=== PATIENT | male | born 1955 | race Caucasian/White ===

== ENCOUNTER 2018-12-09 17:14 | Observation (INO) ==
[2018-12-09] MEDS ORDERED: Isovue-370 500 ML BOTTLE IVP ONE (17:25)
--- NOTE | 2018-12-09 17:25 | Emergency Department Note ---
Disposition Clinical Impression: Facial droop Disposition: Admitted As Inpatient Condition: Fair Referrals: NONE,PCP [Primary Care Provider] - Forms: ED Satisfaction Letter Time of Disposition: 19:12 Neuro HPI - General Chief Complaint: ED Neuro Symptoms/Deficit Stated Complaint: POSSIBLE STROKE Time Seen by Provider: 12/09/18 17:16 Source: patient Nursing Notes Reviewed: Yes Vital Signs Reviewed: Yes - History of Present Illness HPI Narrative: 63-year-old male who presents emergency Department with stroke-like symptoms. Per his last known well was 11:30, approximately 6 hours prior to arrival. At 11:30 he was his normal self and left. She called him and he was sl urring his speech and seemed confused. When she got home he did not know the president and did not know the year. She noted right-sided facial droop and brought him into the emergency department. He does not take any anticoagulants other than aspirin. - Related Data Home Medications: Home Medications Medication Instructions Recorded Confirmed Aspirin [Lo-Dose Aspirin EC] 81 mg PO DAILY 12/09/18 12/09/18 Losartan/Hydrochlorothiazide 1 each PO DAILY 12/09/18 12/09/18 [Losartan-Hctz 100-25 mg Tab] Potassium Chloride 20 meq PO TID 12/09/18 12/09/18 Allergies/Adverse Reactions: Allergies Allergy/AdvReac Type Severity Reaction Status Date / Time No Known Allergies Allergy Verified 12/09/18 17:42 Review of Systems: ROS per history of present illness, all other systems reviewed and negative or normal. All systems ED: reviewed and negative except as stated. Review of Systems: As Per HPI Past Medical History - Past Medical History Medical history: Reports: hypertension - Social History Smoking Status: Never smoker Smokeless Tobacco Status: No Alcohol use: Reports: none Drug use: Reports: none Physical Exam General: Conversant. No apparent distress. Follow commands. Appears stated age. Neck: No JVD. Trachea midline. Neck supple. Eyes: PERRL. No scleral icterus. HENT: Normocephalic and atraumatic. Moist mucus membranes. Cardiovascular: Regular rate and rhythm. Normal S1 and S2. No murmurs appreciated. Normal capillary refill. Extremities well perfused with 2+ distal pulses bilaterally. No edema. Pulmonary: Normal and equal breath sounds bilaterally, anteriorly and posteriorly. No wheezes, rales, or rhonchi. Not in respiratory distress. Speaks in full sentences. Abdomen: Soft, nondistended, and tontender. No bruits or masses. No guarding. Neuro: Alert and oriented to person, place. CN II-XII tested and grossly intact. No hemineglect. Speech is fluid and without slurring. Right-sided facial droop. Follows commands. Able to identify objects. Sensory: Sensation intact to light touch in all extremities. Motor: Normal tone and bulk. No pronator drift. 5/5 strength in LUE 5/5 strength in RUE 5/5 strength in LLE 5/5 strength in RLE Reflexes: Brachioradialis, biceps, and patellar reflexes 2+ and symmetric bilaterally. Babinski with downgoing toes bilaterally. Skin: No rashes noted on visualized skin. Musculoskeletal: No bony abnormalities visualized. Moves all extremities. Psych: Normal mood. Pleasant. Makes appropriate eye contact. - General General appearance: alert Course - Reevaluation(s) Reevaluation #1: Per [facility], head and neck CTA negative for acute occlusive disease. Time: 18:48 - Consultations Consultation #1: Per [facility], noncontrast head Ct negative for acute bleed. CTAs pending Time: 17:36 Consultation #2: Spoke with [facility] Time: 17:46 Consultation #3: [facility] neurologist, Dr. Levin evaluated the patient and recommends admission for possible transient global amnesia. Time: 17:57 Vital Signs Temperature 98.6 F 12/09/18 17:17 Pulse Rate 71 12/09/18 17:17 Respiratory Rate 18 12/09/18 17:17 Blood Pressure 158/93 12/09/18 17:17 O2 Sat by Pulse Oximetry 97 12/09/18 17:17 Temperature 98.6 F 12/09/18 17:17 Pulse Rate 66 12/09/18 18:39 Respiratory Rate 18 12/09/18 18:39 Blood Pressure 146/81 12/09/18 18:39 O2 Sat by Pulse Oximetry 100 12/09/18 18:39 Oxygen Delivery Oxygen Delivery Room Air Neuro Symptoms/Deficit - MDM Narrative Medical decision making narrative: 63-year-old male who presents the emergency room with complaints of right-sided facial droop and altered mental status. Last known well was approximately 6 hours prior to arrival. He does have right-sided facial droop but otherwise he is alert and oriented without neurologic deficits. Given the patient's less than 24 hours of symptoms he did initiate stroke alert to determine whether he is candidate for endovascular repair. Accu-Chek greater than 100. CT head was performed which shows no evidence of acute hemorrhagic bleed. Given the timeline did also sent for CT angio head and neck. [facility] neurologist evaluated the patient and deemed him not a candidate for TPA given the timeline and lack of significant deficits. They recommend awaiting CTA and admitting for possible transient global amnesia. The patient has no evidence of occlusive disease on CTA. The patient and his are agreeable to plan for admission. Otherwise his laboratory evaluation is stable. No significant anemia, leukocytosis, electrolyte abnormality. Troponin 1 less than 0.03. Discussed case with on- call hospitalist Dr. Jameson who agrees with plan for admission and accepts the patient to the inpatient service. Patient agrees with and understands course of treatment plan including plan for admission. All questions answered. - Medical Records Medical records reviewed: Yes I reviewed the patient's medical records. - Lab Data Lab results reviewed: Yes I reviewed the patient's lab results. Result diagrams: 12/09/18 17:44 12/09/18 17:44 Lab Results 12/09/18 12/09/18 12/09/18 Range/Units 17:44 17:44 17:44 WBC 7.1 (4.3-11.1) K/mcL RBC 4.38 (4.19-5.50) M/mcL Hgb 13.2 (12.9-16.9) g/dL Hct 39.0 (37.5-50.1) % MCV 89.0 (83.0-100.0) fL MCH 30.1 (28.0-33.3) pg MCHC 33.8 (31.6-35.5) g/dL RDW 13.4 (11.5-14.5) % Plt Count 223 (140-400) K/mcL MPV 10.1 (9.4-12.4) fL PT 11.9 (9.4-12.1) Seconds INR 1.0 APTT 29.9 (26.0-36.0) Seconds Sodium 138 (136-145) mEq/L Potassium 3.7 (3.5-5.1) mEq/L Chloride 104 (98-107) mEq/L Carbon Dioxide 27 (23-29) mEq/L BUN 20 (8-23) mg/dL Creatinine 1.16 (0.70-1.30) mg/dL Est GFR ( Amer) > 60 (> 60) Est GFR (Non-Af Amer) > 60 (> 60) BUN/Creatinine Ratio 17 (6-26) Glucose 114 H (70-105) mg/dL Calculated Osmolality 289 (280-300) Calcium 8.5 L (8.6-10.3) mg/dL Troponin I < 0.03 (< 0.04) ng/mL - Radiology Data Radiology results reviewed: Yes I reviewed the patient's radiology results. Head CT 12/09/18 17:23 IMPRESSION: No acute intracranial abnormality. Findings were discussed with Samina Dale at 5:36 pm on 12/09/2018. D/ / Mehul Leiva MD / Mehul Leiva MD Interpreting Provider: Mehul Leiva MD Head CTA 12/09/18 17:25 IMPRESSION: 1. No intracranial proximal large artery high-grade stenosis or occlusion. Focal 50% stenosis of the right posterior cerebral artery proximal P2 segment. 2. No cervical ICA stenosis per NASCET criteria. 3. Patent bilateral vertebral arteries. Critical results were called by Dr. Barrie Gibson to Samina Dale on 12/09/2018 at 18:48. D/ / Barrie Gibson / Barrie Gibson Interpreting Provider: Barrie Gibson Neck CTA 12/09/18 17:25 IMPRESSION: 1. No intracranial proximal large artery high-grade stenosis or occlusion. Focal 50% stenosis of the right posterior cerebral artery proximal P2 segment. 2. No cervical ICA stenosis per NASCET criteria. 3. Patent bilateral vertebral arteries. Critical results were called by Dr. Barrie Gibson to Samina Dale on 12/09/2018 at 18:48. D/ / Barrie Gibson / Barrie Gibson Interpreting Provider: Barrie Sessions Checklist - Eligibilty for IV tPA 1. LKW equal to or less than 4.5 hours be before treatment: No 2. Clinical diagnosis of ischemic stroke causing deficit: No 3. Age 18 years or older: No - LKW: 3-4.5 hrs Add. Warnings/Precautions Patient/family understanding: The patient/family members have been counseled and understood the risk, benefit, and alternatives of treatment. Agustin - Agustin Situation: Demographics, MOA Background: Presenting Complaint, Relevant PMH, Meds, & Allergies Assessment: Vital Signs, Course and respsone to treatment, Exam Concerns, Patient/Family Expectation, Pertinant Lab Results Recommendation: Recommendation based on pending studies, treatments, or consults S.BMohan Report Given to: Gisell Velez Repor Time: 19:17
--- NOTE | 2018-12-09 17:32 | Emergency Department Note ---
Disposition Clinical Impression: Facial droop Disposition: Admitted As Inpatient Condition: Fair Forms: ED Satisfaction Letter Time of Disposition: 17:32 General Adult HPI - General Chief complaint: ED Neuro Symptoms/Deficit Stated complaint: POSSIBLE STROKE Time Seen by Provider: 12/09/18 17:16 Source: patient - History of Present Illness Pain Scale: 0 - Related Data Home Medications Medication Instructions Recorded Confirmed Aspirin [Lo-Dose Aspirin EC] 81 mg PO DAILY 12/09/18 12/09/18 Losartan/Hydrochlorothiazide 1 each PO DAILY 12/09/18 12/09/18 [Losartan-Hctz 100-25 mg Tab] Potassium Chloride 20 meq PO TID 12/09/18 12/09/18 Past Medical History - Past Medical History Medical history: Reports: hypertension - Social History Smoking Status: Never smoker Smokeless Tobacco Status: No Alcohol use: Reports: none Drug use: Reports: none Physical Exam - General General appearance: alert Course Vital Signs Temperature 98.6 F 12/09/18 17:17 Pulse Rate 71 12/09/18 17:17 Respiratory Rate 18 12/09/18 17:17 Blood Pressure 158/93 12/09/18 17:17 O2 Sat by Pulse Oximetry 97 12/09/18 17:17 Temperature 98.6 F 12/09/18 17:17 Pulse Rate 71 12/09/18 17:17 Respiratory Rate 18 12/09/18 17:17 Blood Pressure 158/93 12/09/18 17:17 O2 Sat by Pulse Oximetry 97 12/09/18 17:17 Oxygen Delivery Oxygen Delivery Room Air Attestation Statement - Attestation Attestation: I reviewed the residents documentation and agree with the residents assessment and plan of care. I have personally had face to face time with the patient. (Brief History, Brief Exam, and MDM) I personally supervised and was present for the garcia/critical portions of the following procedures completed by the resident: (add procedures performed here). 63 year old male presents to the eD with complaints of right sided facial droop and LKW was 1130 as his was the last to seen him and he otherwise does not have a histroy of strokes from the past. We have called STROKE ALERT. No other neuro defecits present and I believe he is otherwise outside the window for tpa, but we will defer to [facility] telestroke.
[2018-12-09 17:56] LABS: Hemoglobin 13.2 g/dL (12.9-16.9); Mean Corpuscular HGB Conc 33.8 g/dL (31.6-35.5); Mean Corpuscular Hemoglobin 30.1 pg (28.0-33.3); Mean Platelet Volume 10.1 fL (9.4-12.4); Platelet Count 223 K/mcL (140-400); Red Blood Count 4.38 M/mcL (4.19-5.50); Red Cell Distribution Width 13.4 % (11.5-14.5); White Blood Count 7.1 K/mcL (4.3-11.1)
[2018-12-09 18:06] LABS: Prothrombin Time 11.9 Seconds (9.4-12.1)
[2018-12-09 18:09] LABS: Activated Partial Thrombo Time 29.9 Seconds (26.0-36.0)
[2018-12-09 18:19] LABS: BUN/Creatinine Ratio 17 (6-26); Blood Urea Nitrogen 20 mg/dL (8-23); Calcium 8.5 mg/dL (8.6-10.3); Carbon Dioxide 27 mEq/L (23-29); Chloride 104 mEq/L (98-107); Glucose 114 mg/dL (70-105); Osmolality,Calculated 289 (280-300); Potassium 3.7 mEq/L (3.5-5.1); Sodium 138 mEq/L (136-145); eGFR For African Americans > 60 (> 60); eGFR For Non-African Americans > 60 (> 60)
[2018-12-09 18:21] LABS: Troponin I < 0.03 ng/mL (< 0.04)
[2018-12-09] MEDS ORDERED: Aspirin 81 MG TAB.CHEW PO STA (19:18)
--- NOTE | 2018-12-09 21:01 | Internal Med History&Physical ---
Date of Encounter: 12/09/18 Time of Encounter: 20:57 Internal Medicine - H&P: HPI Chief complaint: Strokelike symptoms History of present illness: Mr. Banuelos is a 63 year old male with a past medical history of hypertension and melanoma status post excision 2 who presented to the ED due to concerns for strokelike symptoms consisting of right-sided facial droop and altered mental status. Patient was in his usual state of health approximately 6 hours prior to arrival. Patient states that he was in his usual state of health today. Around 2 this afternoon he was in his garage working on his mower. His next memory was of being evaluated here in the ED. According to his daughter who was at bedside, patient lives at home with his who was away from the house but called to check up on him. Per report, when he answered he was reported to be very emotional, was confused and uncertain what was going on. When she arrived at 4 she found him sitting on the front porch without any recollection of how he got there or the events that led up to this point. Squad was called and patient was brought in for evaluation. Stroke alert was initiated shortly after arrival. On arrival patient was afebrile with a initial blood pressure 158/93. Laboratory workup was also unremarkable. Imaging workup was negative for any acute intracranial abnormalities. Additionally, CTA of the head and neck within subocclusive disease. After further evaluation by [facility] neurology, given patient's timeline and lack of significant deficits, patient was deemed not to be a candidate for TPA. In addition to concern for CVA/TIA transient global amnesia was also discussed as a possibility. Patient was given a loading dose of aspirin and admitted for further evaluation. Patient denies any recent illness, fever, chills, shortness of breath, chest pain, nausea, vomiting or d iarrhea. Denies palpitations. Patient is a never smoker and drinks alcohol on occasion. He reports that he has been having some issues with memory for the past year, specifically remembering names. His daughter does report that he forgot going to a [employer] last Tuesday. No reports of depression or stress. Family history significant for heart disease in his father and Parkinson disease in his mother. 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 Patient wishes to be full code. Past Med Surg Social Fam HX - Past Medical History Medical history: hypertension Additional medical history: melanoma - Past Surgical History Additional surgical history: back surgeries - Social History Smoking Status: Never smoker Smokeless Tobacco Status: No Alcohol use: none Drug use: none - Family History Father Hx Family Cardiac Disorders: Yes (SC with stents) Hx Family Cancer: Yes (melanoma) Mother Hx Family Neuromuscular Disorders: Yes (Parkinsons) Internal Medicine - H&P: Meds Aspirin [Lo-Dose Aspirin EC] 81 mg PO DAILY 12/09/18 [History] Losartan/Hydrochlorothiazide [Losartan-Hctz 100-25 mg Tab] 1 each PO DAILY 12/09/18 [History] Potassium Chloride 20 meq PO TID 12/09/18 [History] Allergy/AdvReac Type Severity Reaction Status Date / Time No Known Allergies Allergy Verified 12/09/18 17:42 All Systems PM: A 10-system review of systems was performed and is negative for pertinent findings except as documented above in the HPI. - Constitutional Constitutional: no chills, no fever(s), no night sweats - EENT Eyes: no change in vision, no discharge, no pain, no photophobia Ears: no ear discharge, no ear pain, no tinnitus Nose, mouth and throat: no dysphagia, no nasal discharge, no neck pain, no sore throat - Cardiovascular Cardiovascular ROS IM: no chest pain, no diaphoresis, no dyspnea, no lightheadedness, no palpitations, no syncope - Respiratory Respiratory: no cough, no dyspnea, no wheezing, no excessive phlegm production - Gastrointestinal Gastrointestinal: no abdominal pain, no diarrhea, no hematemesis, no hematoch ezia, no melena, no nausea, no vomiting - Musculoskeletal Musculoskeletal ROS IM: no numbness, no tingling - Integumentary Integumentary IM: no rash, no unusual bruising - Neurological Neurological ROS: no confusion, no convulsions, no focal weakness, no numbness, no tingling, no tremor(s) - Hematologic/Lymphatic Hematologic/Lymphatic: no easy bruising - Constitutional Vitals: Temp Pulse Resp BP Pulse Ox 98.5 F 59 16 170/110 97 12/09/18 20:12 12/09/18 20:12 12/09/18 20:12 12/09/18 20:12 12/09/18 20:12 Exam: General: Alert and oriented 3 lying in bed in no acute distress Skin:Normal color, no rash, no lesions. HEENT:EOM, pupils equal, round and reactive. Cardiovascular:Normal S1 & S2, no rubs, murmurs or gallops. No JVD. Pulse regular. Lungs:Normal breath sounds, no wheezes or crackles. Abdomen:Soft, non-tender, no rigidity. Extremities:No deformity, no edema or tenderness, no joint swelling or clubbing. Neurological:Normal cognition and motor skills. Radial nerves II through XII intact. There is mild subtle right-sided facial droop. Sensation intact. No pronator drift. No dysmetria. Muscle strength 5 out of 5 in the upper and lo wer extremities. Pulses:Carotid and radial pulses normal +2. Rest of the physical exam is non contributory Internal Med - H&P Results - Labs CBC & Chem 7: 12/10/18 00:39 12/10/18 00:39 Labs: Short CBC 12/09/18 Range/Units 17:44 WBC 7.1 (4.3-11.1) K/mcL Hgb 13.2 (12.9-16.9) g/dL Hct 39.0 (37.5-50.1) % Plt Count 223 (140-400) K/mcL BMP 12/09/18 17:44 Sodium 138 Potassium 3.7 Chloride 104 Carbon Dioxide 27 BUN 20 Creatinine 1.16 Glucose 114 H Calcium 8.5 L Cardiac Enzymes 12/09/18 Range/Units 17:44 Troponin I < 0.03 (< 0.04) ng/mL - Impressions ITS Impressions Head CT 12/09/18 17:23 IMPRESSION: No acute intracranial abnormality. Findings were discussed with Samina Dale at 5:36 pm on 12/09/2018. D/ / Mehul Leiva MD / Mehul Leiva MD Interpreting Provider: Mehul Leiva MD Head CTA 12/09/18 17:25 IMPRESSION: 1. No intracranial proximal large artery high-grade stenosis or occlusion. Focal 50% stenosis of the right posterior cerebral artery proximal P2 segment. 2. No cervical ICA stenosis per NASCET criteria. 3. Patent bilateral vertebral arteries. Critical results were called by Dr. Sood Sessions to Samina Dale on 12/09/2018 at 18:48. D/ / Barrie Sessions / Barrie Gibson Interpreting Provider: Barrie Gibson Neck CTA 12/09/18 17:25 IMPRESSION: 1. No intracranial proximal large artery high-grade stenosis or occlusion. Focal 50% stenosis of the right posterior cerebral artery proximal P2 segment. 2. No cervical ICA stenosis per NASCET criteria. 3. Patent bilateral vertebral arteries. Critical results were called by Dr. Sood Sessions to Samina Dale on 12/09/2018 at 18:48. D/ / Barrie Gibson / Barrie Gibson Interpreting Provider: Barrie Gibson - Assessment and Plan (1) Stroke-like symptoms Current Visit: Yes Status: Acute Assessment and plan: 63-year-old male with a past medical history of hypertension and previous history of melanoma presenting from home due to concern for stroke like symptoms consisting of reported right-sided facial droop and memory impairment. CT of the head showing no acute intracranial abnormality. CTA of the head/neck showing no focal significant arterial narrowing. On my assessment, patient appears to be neurologically intact. If there is right-sided facial droop, it is very subtle. Laboratory workup also unremarkable. At this point patient's neurologic deficit appears predominantly an issue with recollection of recent events. Possibility of transient global amnesia was discussed after [facility] neurological evaluation. He does have family history of Parkinson's disease and it is unclear this may be an early manifestation. We will continue stroke workup and await further neurological assessment. -Telemetry -Hold antihypertensives to allow for permissive hypertension -Neurochecks -We will order labs for B12, folic acid, TSH and RPR screen. -Bedside swallow evaluation to follow -Obtain echo and carotid duplex in the morning -MRI without contrast in the morning -Neurology consult (2) Hypertension Current Visit: Yes Status: Acute Assessment and plan: History of hypertension. We will hold antihypertensives for the first 24 hours to allow for permissive hypertension. Qualifiers: Hypertension type: essential hypertension Qualified Code(s): I10 - Essential (primary) hypertension (3) Melanoma Current Visit: Yes Status: Acute Assessment and plan: History of melanoma of the skin status post excision of lesions 2 in the past. Qualifiers: Melanoma location: unspecified site Qualified Code(s): C43.9 - Malignant melanoma of skin, unspecified (4) DVT prophylaxis Current Visit: Yes Status: Acute Assessment and plan: Subcutaneous heparin - Time Spent With Patient Total time spent is greater than 50% in coordination of care (as documented) at patient's floor/unit and/or counseling patient:
[2018-12-10 01:13] LABS: Hematocrit 40.9 % (37.5-50.1); Hemoglobin 13.9 g/dL (12.9-16.9); Mean Corpuscular Hemoglobin 30.3 pg (28.0-33.3); Mean Corpuscular Volume 89.3 fL (83.0-100.0); Mean Platelet Volume 10.5 fL (9.4-12.4); Platelet Count 236 K/mcL (140-400); Red Blood Count 4.58 M/mcL (4.19-5.50); Red Cell Distribution Width 13.6 % (11.5-14.5); White Blood Count 7.4 K/mcL (4.3-11.1)
[2018-12-10 01:22] LABS: Prothrombin Time 11.9 Seconds (9.4-12.1)
[2018-12-10 01:29] LABS: Alanine Aminotransferase 19 Units/L (7-52); Albumin 3.9 g/dL (3.5-5.7); Albumin/Globulin Ratio 1.6 (1.1-2.2); Alkaline Phosphatase 45 Units/L (34-104); Aspartate Amino Transferase 16 Units/L (13-39); BUN/Creatinine Ratio 18 (6-26); Bilirubin,Total 0.9 mg/dL (0.3-1.0); Blood Urea Nitrogen 19 mg/dL (8-23); Calcium 8.8 mg/dL (8.6-10.3); Carbon Dioxide 29 mEq/L (23-29); Chloride 105 mEq/L (98-107); Globulin 2.5 g/dL (2.4-3.5); Glucose 94 mg/dL (70-105); Osmolality,Calculated 292 (280-300); Potassium 3.6 mEq/L (3.5-5.1); Sodium 140 mEq/L (136-145); Total Protein 6.4 g/dL (6.4-8.9); Triglycerides 117 mg/dL (< 150); eGFR For African Americans > 60 (> 60); eGFR For Non-African Americans > 60 (> 60)
[2018-12-10 01:30] LABS: Chol/HDL Ratio 6.7 (0-4.9); Cholesterol 215 mg/dL (< 200); HDL Cholesterol 32 mg/dL (40-59); LDL Cholesterol,Calculated 160 mg/dL (0-99)
[2018-12-10 01:31] LABS: Troponin I < 0.03 ng/mL (< 0.04)
[2018-12-10 01:53] LABS: Folate 8.1 ng/mL (3.0-16.0)
[2018-12-10 02:46] LABS: Estimated Average Glucose 123 mg/dl
[2018-12-10] MEDS: Aspirin Enteric Coated 81 MG Tablet PO SCH (07:28)
--- NOTE | 2018-12-10 14:43 | Internal Med Progress Note ---
Hospitalist Progress Note - Encounter Date of Encounter: 12/10/18 Time of Encounter: 11:00 - Subjective Interval History: She was seen and examined at bedside states that he is currently back to his baseline. Discussed findings on CT as well as discuss blood pressure control and that we are currently allowing permissive hypertension. Patient verbalized understanding discuss treatment plan with the patient and family who are at bedside verbalized understanding. - Exam Vitals: Temp Pulse Resp BP Pulse Ox 98.6 F 51 16 152/84 96 12/10/18 11:46 12/10/18 11:46 12/10/18 11:46 12/10/18 11:46 12/10/18 11:46 Exam: General: Alert and oriented 3 lying in bed in no acute distress Skin:Normal color, no rash, no lesions. HEENT:EOM, pupils equal, round and reactive. Cardiovascular:Normal S1 & S2, no rubs, murmurs or gallops. No JVD. Pulse regular. Lungs:Normal breath sounds, no wheezes or crackles. Abdomen:Soft, non-tender, no rigidity. Extremities:No deformity, no edema or tenderness, no joint swelling or clubbing. Neurological:Normal cognition and motor skills. Radial nerves II through XII intact. Sensation intact. Very slight right facial droop No pronator drift. No dysmetria. Muscle strength 5 out of 5 in the upper and lower extremities. Pulses:Carotid and radial pulses normal +2. Rest of the physical exam is non contributory - Assessment and Plan (1) Stroke-like symptoms Current Visit: Yes Status: Acute Assessment and Plan: 63-year-old male with a past medical history of hypertension and previous history of melanoma presenting from home due to concern for stroke like symptoms consisting of reported right-sided facial droop and memory impairment. CT of the head showing no acute intracranial abnormality. CTA of the head/neck showing no focal significant arterial narrowing. On my assessment, patient appears to be neurologically intact. If there is right-sided facial droop, it is very subtle. Laboratory workup also unremarkable. At this point patient's neurologic deficit appears predominantly an issue with recollection of recent events. Possibility of transient global amnesia was discussed after [facility] ne urological evaluation. She does have family history of Parkinson's disease and it is unclear this may be an early manifestation. We will continue stroke workup and await further neurological assessment. -Telemetry -Hold antihypertensives to allow for permissive hypertension -Neurochecks - B12 slightly low we will add oral B12 daily, folic acid, TSH and RPR screen.- Within normal limits -Bedside swallow evaluation -patient past -Obtain echo and carotid duplex pending -MRI without contrast pending -Neurology consult (2) Hypertension Current Visit: Yes Status: Acute Assessment and Plan: History of hypertension. We will hold antihypertensives for the first 24 hours to allow for permissive hypertension. (3) DVT prophylaxis Current Visit: Yes Status: Acute Assessment and Plan: Subcutaneous heparin (4) Melanoma Current Visit: Yes Status: Acute Assessment and Plan: History of melanoma of the skin status post excision of lesions 2 in the past. - Time Spent with Patient Total time spent is greater than 50% in coordination of care (as documented) at patient's floor/unit and/or counseling patient: Internal Medicine: Result - Labs CBC & Chem 7: 12/10/18 00:39 12/10/18 00:39 Labs: Short CBC 12/09/18 12/10/18 Range/Units 17:44 00:39 WBC 7.1 7.4 (4.3-11.1) K/mcL Hgb 13.2 13.9 (12.9-16.9) g/dL Hct 39.0 40.9 (37.5-50.1) % Plt Count 223 236 (140-400) K/mcL BMP 12/09/18 12/10/18 17:44 00:39 Sodium 138 140 Potassium 3.7 3.6 Chloride 104 105 Carbon Dioxide 27 29 BUN 20 19 Creatinine 1.16 1.07 Glucose 114 H 94 Calcium 8.5 L 8.8 Cardiac Enzymes 12/09/18 12/10/18 Range/Units 17:44 00:39 Troponin I < 0.03 < 0.03 (< 0.04) ng/mL Liver Function 12/10/18 Range/Units 00:39 Total Bilirubin 0.9 (0.3-1.0) mg/dL AST 16 (13-39) Units/L ALT 19 (7-52) Units/L Alkaline Phosphatase 45 (34-104) Units/L Albumin 3.9 (3.5-5.7) g/dL - ABG Interpretation ABG results: PT/INR, D-dimer PT 11.9 Seconds (9.4-12.1) 12/10/18 00:39 - Impressions Impressions Head CT 12/09/18 17:23 IMPRESSION: No acute intracranial abnormality. Findings were discussed with Samina Dale at 5:36 pm on 12/09/2018. D/ / Mehul Leiva MD / Mehul Leiva MD Interpreting Provider: Mehul Leiva MD Head CTA 12/09/18 17:25 IMPRESSION: 1. No intracranial proximal large artery high-grade stenosis or occlusion. Focal 50% stenosis of the right posterior cerebral artery proximal P2 segment. 2. No cervical ICA stenosis per NASCET criteria. 3. Patent bilateral vertebral arteries. Critical results were called by Dr. Sood Sessions to Samina Dale on 12/09/2018 at 18:48. D/ / Barrie Gibson / Barrie Gibson Interpreting Provider: Barrie Gibson Neck CTA 12/09/18 17:25 IMPRESSION: 1. No intracranial proximal large artery high-grade stenosis or occlusion. Focal 50% stenosis of the right posterior cerebral artery proximal P2 segment. 2. No cervical ICA stenosis per NASCET criteria. 3. Patent bilateral vertebral arteries. Critical results were called by Dr. Sood Sessions to Samina Dale on 12/09/2018 at 18:48. D/ / Barrie Gibson / Barrie Gibson Interpreting Provider: Barrie Gibson Consult Discharge Plan - Plan Referrals: Ze Cardenas DO [Primary Care Provider] - (Appointment has been requested.) (2) Hypertension Qualifiers: Hypertension type: essential hypertension Qualified Code(s): I10 - Essential (primary) hypertension
--- NOTE | 2018-12-10 16:59 | Neurology - Consult Note ---
Date of Encounter: 12/10/18 Time of Encounter: 16:55 Assessment and Plan (1) Transient global amnesia Current Visit: Yes Status: Acute I agree that given this scenario the clinical impression fits best with transient global amnesia. Usually with this entity individuals will have retrograde and anterograde amnesia which covers a period of usually several hours. During that time the individual was not able to recollect most of what transpired. Many of these individuals will have a prior history of migraine headaches but not always. This entity is poorly understood however it has not been linked to seizure activity or even transient ischemia. In any regard I would like to obtain an EEG and an MRI is yet pending. Further recommendations will be made pending the results of these tests. He is now back to his normal baseline function. History of Present Illness HPI: The chart was reviewed, the patient was seen and examined. Mr. Banuelos is a 63 year old male who is being seen for neurologic consultation at the request of the hospitalist secondary to an episode of confusion and memory loss. He does have a prior history of hypertension and status post excision of melanoma who presented to the ED secondary to a brief episode of confusion and memory loss. This occurred actually on the day of admission which was December 09. At the time apparently he was in the probe on working on his lawnmower. And his next memory was 4 hours later when he was in the ED here to [facility]. Apparently his called him at the house and he did answer the phone but apparently sounded very distraught, confused. He is also very emotional. She came home she found him sitting on the front porch and he was confused about high gotten and about what transpired in the interim since he last seen his earlier that day. Apparently according to his at around 7:00 that evening he began to recollect things that happened that he was not able to recollect earlier. He does not recall having a headache denies any numbness tingling or paresthesias of his face arms or legs. Denies any residual problems at this time. However he still has a lapse of about 4 or 5 hours that he cannot recall. He does have a prior history of migraine headaches as a younger man but has not had them in some time. He denies any headache, denies any event that might have been suggestive of seizure activity. Past Med Surg Social Fam HX - Past Medical History Medical history: hypertension Additional medical history: melanoma - Past Surgical History Additional surgical history: back surgeries - Social History Smoking Status: Never smoker Smokeless Tobacco Status: No Alcohol use: none Drug use: none - Family History Father Hx Family Cardiac Disorders: Yes (ID with stents) Hx Family Cancer: Yes (melanoma) Mother Hx Family Neuromuscular Disorders: Yes (Parkinsons) Medications and Allergies Aspirin [Lo-Dose Aspirin EC] 81 mg PO DAILY 12/09/18 [History] Losartan/Hydrochlorothiazide [Losartan-Hctz 100-25 mg Tab] 1 each PO DAILY 12/09/18 [History] Potassium Chloride 20 meq PO TID 12/09/18 [History] Allergy/AdvReac Type Severity Reaction Status Date / Time No Known Allergies Allergy Verified 12/09/18 17:42 All Systems: The remainder of the systems were reviewed and are negative Review of Systems: The balance of the systems review is negative. Physical Examination - Vital Signs Vital Signs: Initial Vital Signs Temp Pulse Resp BP Pulse Ox 98.6 F 71 18 158/93 97 12/09/18 17:17 12/09/18 17:17 12/09/18 17:17 12/09/18 17:17 12/09/18 17:17 - Exam Exam: General Examination: *CONSTITUTIONAL: normal *GENERAL APPEARANCE OF PATIENT appears healthy and well groomed *EYES: pupils equal, round, reactive to light and accommodation, conjunctiva clear without masses or ulcerations, fundi normal. *CARDIOVASCULAR no peripheral edema, distal temperature normal, dorsalis pedis pulses normal. Refer to vital signs Musculoskeletal: *GAIT AND STATION normal, with normal Romberg testing, no abnormalities such as broad base gait or spasticity *ASSESSMENT OF MUSCLE STRENGTH IN THE UPPER AND LOWER EXTREMITIES deltoid, bicep, tricep, search engine optimization specialist strength, hip flexors ,anterior tibialis, dorsoflexion of t he foot normal. *MUSCLE TONE IN THE UPPER AND LOWER EXTREMITIES normal. No abnormal movements, fasciculations or atrophy identified. Neurological: *ORIENTATION to time and place *RECURRENT AND REMOTE MEMORY intact *ATTENTION AND CONCENTRATION are normal *LANGUAGE FUNCTION no significant aphasia or dysarthia was noted. *FUND OF KNOWLEDGE aware of current events, past history, vocabulary *MENTAL attention span and concentration normal. *CN II optic fundi were normal, no papilledema noted. *CN III,IV, PERRLA extraocular eye movements were full, no nystagmus and no ptosis noted. *CN V shows normal sensation and jaw opens symmetrically. *CN VII shows normal facial movement symmetrically, upper and lower bilaterally. *CN VIII shows no significant hearing loss on examination in the office. *CN IX,,X palate elevated symmetrically and normal gag reflex was noted. *CN XI normal strength in the sternocleidomastoid muscles, symmetrical shoulder shrugging. *CN XII tongue protruded in the midline, with normal strength and movement. *SENSORY EXAMINATION pinprick sensation intact, and light touch(vibration sense). *REFLEXES: deep tendon reflexes were normal and symmetrical , grade 2/4 diffusely, no pathological reflexes were noted. *CEREBELLAR TESTING normal finger to nose, heel/knee/avila, and tandem walk. *PAIN LEVEL 0 Results - Laboratory Findings CBC and BMP: 12/10/18 00:39 12/10/18 00:39 Abnormal lab findings: Abnormal lab results Glucose 114 mg/dL (70-105) H 12/09/18 17:44 5.9 % (-5.6) H 12/10/18 00:39 Calcium 8.5 mg/dL (8.6-10.3) L 12/09/18 17:44 Cholesterol 215 mg/dL (< 200) H 12/10/18 00:39 LDL Cholesterol, Calc 160 mg/dL (0-99) H 12/10/18 00:39 32 mg/dL (40-59) L 12/10/18 00:39 6.7 (0-4.9) H 12/10/18 00:39 Vitamin B12 240 pg/mL (250-1100) L 12/10/18 00:39 Consult Discharge Plan - Plan Referrals: Ze Cardenas DO [Primary Care Provider] - (Appointment has been requested.)
[2018-12-11 01:55] LABS: Basophils % 0.7 %; Eosinophils # 0.3 K/mcL (0.0-0.6); Eosinophils % 5.6 %; Hemoglobin 13.4 g/dL (12.9-16.9); Lymphocytes # 2.2 K/mcL (0.6-4.6); Lymphocytes % 39.1 %; Mean Corpuscular HGB Conc 33.5 g/dL (31.6-35.5); Mean Corpuscular Hemoglobin 30.3 pg (28.0-33.3); Mean Corpuscular Volume 90.5 fL (83.0-100.0); Mean Platelet Volume 10.1 fL (9.4-12.4); Monocytes # 0.6 K/mcL (0.0-1.3); Monocytes % 9.6 %; Neutrophils # 2.6 K/mcL (1.6-8.9); Platelet Count 219 K/mcL (140-400); Red Blood Count 4.42 M/mcL (4.19-5.50); Red Cell Distribution Width 13.7 % (11.5-14.5); White Blood Count 5.7 K/mcL (4.3-11.1)
[2018-12-11 02:19] LABS: BUN/Creatinine Ratio 21 (6-26); Blood Urea Nitrogen 24 mg/dL (8-23); Calcium 8.6 mg/dL (8.6-10.3); Carbon Dioxide 28 mEq/L (23-29); Chloride 107 mEq/L (98-107); Glucose 102 mg/dL (70-105); Osmolality,Calculated 298 (280-300); Potassium 3.8 mEq/L (3.5-5.1); Sodium 142 mEq/L (136-145); eGFR For African Americans > 60 (> 60); eGFR For Non-African Americans > 60 (> 60)
[2018-12-11] MEDS: Aspirin Enteric Coated 81 MG Tablet PO SCH (08:46)
[2018-12-11] MEDS ORDERED: Cyanocobalamin (B-12) 1,000 MCG TABLET PO SCH (09:00)
[2018-12-11] MEDS ORDERED: Losartan/HCTZ 50-12.5 TABLET PO SCH (09:00)
--- NOTE | 2018-12-11 10:20 | Neurology Progress Note ---
Date of Encounter: 12/11/18 Time of Encounter: 10:18 Assessment and Plan (1) Transient global amnesia Current Visit: Yes Status: Acute I remains suspicious of transient global amnesia. MRI scan of the brain was negative for acute infarct, the narrowing of the right of P2 segment of the posterior cerebral artery is not clinically relevant in my opinion. Carotid Doppler, echocardiogram and EEG are yet pending. If these tests are negative then patient may be discharged at your discretion. Ongoing management of general medical profile including any stroke risk factors however is paramount. Subjective Interval history: The chart was reviewed, the patient was seen and examined independently. Patient had an uneventful night. No further episodes of memory loss speech difficulty or any other neurologic phenomena. is present as well. MRI scan of the brain has been completed and was negative for cerebral infarct. Reveals an area of focal narrowing in the P2 segment of the right posterior cerebral artery by about 50%. However this is subocclusive and is not clinically relevant. Objective - Constitutional Vitals: Temp Pulse Resp BP Pulse Ox 97.6 F 49 15 153/77 96 12/11/18 06:34 12/11/18 06:34 12/11/18 06:34 12/11/18 06:34 12/11/18 06:34 Exam: Exam: General Examination: *CONSTITUTIONAL: normal *GENERAL APPEARANCE OF PATIENT appears healthy and well groomed *EYES: pupils equal, round, reactive to light and accommodation, conjunctiva clear without masses or ulcerations, fundi normal. *CARDIOVASCULAR no peripheral edema, distal temperature normal, dorsalis pedis pulses normal. Refer to vital signs Musculoskeletal: *GAIT AND STATION normal, with normal Romberg testing, no abnormalities such as broad base gait or spasticity *ASSESSMENT OF MUSCLE STRENGTH IN THE UPPER AND LOWER EXTREMITIES deltoid, bicep, tricep, marketing operations assistant strength, hip flexors ,anterior tibialis, dorsoflexion of th e foot normal. *MUSCLE TONE IN THE UPPER AND LOWER EXTREMITIES normal. No abnormal movements, fasciculations or atrophy identified. Neurological: *ORIENTATION to time and place *RECURRENT AND REMOTE MEMORY intact *ATTENTION AND CONCENTRATION are normal *LANGUAGE FUNCTION no significant aphasia or dysarthia was noted. *FUND OF KNOWLEDGE aware of current events, past history, vocabulary *MENTAL attention span and concentration normal. *CN II optic fundi were normal, no papilledema noted. *CN III,IV, PERRLA extraocular eye movements were full, no nystagmus and no ptosis noted. *CN V shows normal sensation and jaw opens symmetrically. *CN VII shows normal facial movement symmetrically, upper and lower bilaterally. *CN VIII shows no significant hearing loss on examination in the office. *CN IX,,X palate elevated symmetrically and normal gag reflex was noted. *CN XI normal strength in the sternocleidomastoid muscles, symmetrical shoulder shrugging. *CN XII tongue protruded in the midline, with normal strength and movement. *SENSORY EXAMINATION pinprick sensation intact, and light touch(vibration sense). *REFLEXES: deep tendon reflexes were normal and symmetrical , grade 2/4 diffusely, no pathological reflexes were noted. *CEREBELLAR TESTING normal finger to nose, heel/knee/avila, and tandem walk. *PAIN LEVEL 0 Results - Laboratory Findings CBC and BMP: 12/11/18 01:16 12/11/18 01:16 Abnormal lab findings: Abnormal lab results BUN 24 mg/dL (8-23) H 12/11/18 01:16 Glucose 114 mg/dL (70-105) H 12/09/18 17:44 POC Glucose 104 mg/dL (70-99) H 12/09/18 17:18 5.9 % (-5.6) H 12/10/18 00:39 Calcium 8.5 mg/dL (8.6-10.3) L 12/09/18 17:44 Cholesterol 215 mg/dL (< 200) H 12/10/18 00:39 LDL Cholesterol, Calc 160 mg/dL (0-99) H 12/10/18 00:39 32 mg/dL (40-59) L 12/10/18 00:39 6.7 (0-4.9) H 12/10/18 00:39 Vitamin B12 240 pg/mL (250-1100) L 12/10/18 00:39 Consult Discharge Plan - Plan Referrals: Ze Cardenas DO [Primary Care Provider] - (Appointment has been requested.)
[2018-12-11 10:24] LABS: Thyroid Stimulating Hormone 14.103 mcIU/mL (0.340-5.600)
[2018-12-11] MEDS ORDERED: Perflutren Lipid Microsphere 1.3 ML in 0.9 % Sodium Chloride 8.7 ML IVP ONE (11:22)
[2018-12-11 15:00] VITALS: BP 155/79
--- NOTE | 2018-12-11 16:50 | EEG/EMG/Oth Biometrics Report ---
EEG Procedure Report Date of procedure: 12/11/18 EEG Procedure: Routine EEG Procedure Note: This is a report of a 21 channel bipolar and referential montage EEG. A posterior dominant rhythm of 7-8 Hz moderate to low voltage theta and alpha frequencies identified symmetrically in the posterior head regions. This rhythm attenuates symmetrically evaluating. Hyperventilation is performed and does not significantly alter the recording. There is no sleep architecture identified during the study. Photic stimulations performed and produces a symmetric driving response. The EKG rhythm strip reveals sinus bradycardia at 48 bpm. Impressions: His EEG recording is within normal limits. There is no evidence of epileptiform activity identified during the study. Comment: A sinus bradycardia at 48 bpm's identified. Since patient did have an episode of altered consciousness perhaps cardiology consultation might be beneficial. Please correlate clinically.
[2018-12-11] MEDS ORDERED: Cyanocobalamin (B-12) 1,000 MCG/ML VIAL SQ ONE (17:49)
--- NOTE | 2018-12-11 18:01 | Discharge Summary ---
- NOTES TO OUTPATIENT PROVIDER Notes to Outpatient Provider: Experienced episode of confusion and memory loss- neurological workup was negative was noted the patient was bradycardiac TSH was elevated and initiated on Synthroid we will need to monitor as outpatient. Also B12 low initiated on injection and will continue oral B12 will need to be monitored-workup as outpatient for pernicious anemia Date of Encounter: 12/11/18 Time of Encounter: 17:58 - Discharge Diagnosis (1) Stroke-like symptoms Priority: Primary Status: Acute (2) Hypertension Priority: Secondary Status: Acute Qualifiers: Hypertension type: essential hypertension Qualified Code(s): I10 - Essential (primary) hypertension (3) Melanoma Priority: Secondary Status: Acute Qualifiers: Melanoma location: unspecified site Qualified Code(s): C43.9 - Malignant melanoma of skin, unspecified Hospital course: Mr. Banuelos is a 63 year old male patient has a past history of hypertension and post excision of melanoma. Presented to [facility] ED after brief episode of confusion and memory loss which occurred day of admission on December 09. According to patient he was working on his lawnmower at his next membrane was 4 hours later when he was in the emergency department. His did call the house and noted the patient was distraught and confused. He was found on his front porch confused about how he had gone to the porch and what had happened throughout the day. By 7:00 the evening he was able to recollect things that happened that he was unable to recall earlier. Denies any history of headache or any previous seizures. He was admitted and evaluated by neurology MRI scan of brain was negative for acute infarct, the narrowing of the right P2 segment of the posterior cerebral artery was reviewed by neurology and was not clinically relevant-cardiac echo was completed which did show [id number]-[id number] 55% mild ventricular diastolic dysfunction did discuss with cardiology recommending continuation of aspirin follow-up as outpatient with PCP. EEG was completed within normal limits- he did have some bradycardia with heart rate 45 his TSH was elevated and he was started on Synthroid-which I suspect is contributing to his bradycardia. Also he did have low B12 he was given injection and will be sent home with medication and he will need follow-up as outpatient for workup pernicious anemia. Advised patient to follow-up with primary care provider as well as cardiology and neurology. Patient verbalized understanding patient was given prescription for B12 as well as TSH advised to continue aspirin. Currently he is hemodynamically stable at this time is ready for discharge. - Time Spent with Patient Total time spent providing and/or coordinating discharge services: - Discharge Medications Prescriptions: New Levothyroxine [Synthroid] 25 mcg PO DAILY@0630 #30 tablet Cyanocobalamin (B-12) [Vitamin B12] 1,000 mcg PO DAILY #30 tablet Continued Potassium Chloride 20 meq PO TID Aspirin [Lo-Dose Aspirin EC] 81 mg PO DAILY Losartan/Hydrochlorothiazide [Losartan-Hctz 100-25 mg Tab] 1 each PO DAILY Home Medications: Aspirin [Lo-Dose Aspirin EC] 81 mg PO DAILY 12/09/18 [History] Losartan/Hydrochlorothiazide [Losartan-Hctz 100-25 mg Tab] 1 each PO DAILY 12/09/18 [History] Potassium Chloride 20 meq PO TID 12/09/18 [History] Cyanocobalamin (B-12) [Vitamin B12] 1,000 mcg PO DAILY #30 tablet 12/11/18 [Rx] Levothyroxine [Synthroid] 25 mcg PO DAILY@0630 #30 tablet 12/11/18 [Rx] Allergies/Adverse Reactions: Allergy/AdvReac Type Severity Reaction Status Date / Time No Known Allergies Allergy Verified 12/09/18 17:42 Date of admission: 12/09/18 19:27 Primary care physician: Ze Cardenas DO Consults: 12/09/18 20:52 Consult to Neurology [CONS] Routine Consulting Provider: Neurology [facility] Reason for Consult: CVA/TIA vs transient global amnesia Call Completed: No Consult to [employer] Service [employer]er [CONS] Routine Reason for SW Consult: COncern for CVA/TIA 12/11/18 10:56 Consult to Interpret Exam [CONS] Routine Consulting Provider: Isauro Hatfield Consult to Interpret Exam: Interpret EEG Discharging clinician: Lorenza Ruvalcaba Anticipated date of discharge: 12/11/18 - Constitutional Vitals: Temp Pulse Resp BP Pulse Ox 98.3 F 55 16 155/79 98 12/11/18 14:56 12/11/18 14:56 12/11/18 14:56 12/11/18 14:56 12/11/18 14:56 Exam: Skin: Free of rash and discoloration. Eyes: Sclera is white. There is no discharge from eyes. ENMT: Oral/pharyngeal mucosa is normal in appearance. There is no discharge from nose or ears. Respiratory: Normal breath sounds with no crackles and wheezes bilaterally. CV: Heart is regular with no gallop or murmur. GI: Abdomen is flat and soft with no palpable mass or visceromegaly. : There is no tenderness in patient's flanks bilaterally. Neuro exam: He has good strength in upper and lower extremities. He has normal eye movements. Psychiatric: He has normal affect. His thought process is appropriate to the situation. - Patient Status Disposition: Home, Self-Care Condition: Fair Functional capacity at discharge: independent ambulation Overall status at discharge: patient is back to baseline - Discharge Instructions Instructions: Levothyroxine (By mouth), Vitamin B-12 (Cyanocobalamin) (By mouth) Follow Up With: Isauro Hatfield DO [Partnered Physician] - (Your appt has been requested. If the office does not call you, please call them.) Ze Cardenas DO [Primary Care Provider] - (Appointment has been requested.) Saul Massey DO [Partnered Physician] - (Your appt has been requested. If the office does not call you, please call them.) - Diet and Activity Activity: increase activity as tolerated Diet: advance to your usual diet
[2018-12-12] MEDS ORDERED: Levothyroxine 25 MCG TABLET PO SCH (06:30)
== END 2018-12-11 18:50 | disposition home or self-care (01) ==
LOC: 3BNU 17:14 → EMEROOARM 17:14 → 3BNU 19:54
PROVIDERS: ADMIT Internal Medicine Nephrology; ATTEND Internal Medicine Nephrology